=== PATIENT | male | born 1960 | race Hispanic/Latino ===

== ENCOUNTER 2016-07-12 16:49 | Inpatient (IN) | payer MEDICARE, MEDICAID ==
[~2016-07-12] VITALS: Ht 170.2 cm; Wt 88.9 kg
[2016-07-12] VITALS (13 sets, daily range): BP systolic 105–134; BP diastolic 62–87; PULSE 45–75; RESP 13–20; O2SAT 97–100
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
[~2016-07-12 16:49] MED LIST: 0.9% Sodium Chloride 250 ML ONE; ASPI81TA3 PO; ATOR40TA69 PO; CLOP75TA28 PO; Heparin 1,000 Unit/mL 10 mL Inj ONE; Heparin 1,000 Units/500 mL NS Premix IV ONE; Heparin 25,000 Unit/500 mL 0.45% NS Premix IV ONE; Heparin 5,000 Unit/mL Inj ONE; Heparin 5,000 Units/500 mL NS Premix IV ONE; LISI10TA PO; METO25TA6 PO; MeTOProlol 1 mg/mL 5 mL Inj ONE; NITR0.4T SL; NitroPRUSSIDE 25,000 mCg/mL 2 mL Inj IV ONE; Nitroglycerin 2% 1 Gm Ointment TOPICAL ONE; Nitroglycerin 50,000 mcg/250 mL D5W Premix IV ONE; Ondansetron 2 mg/mL 2 mL Inj ONE
[2016-07-12] MEDS ORDERED: 0.9% Sodium Chloride 1,000 ML ONE (16:57)
[2016-07-12] MEDS ORDERED: fentaNYL-PF 50 mCg/mL 2 mL Inj ONE ×3 (16:59→18:06)
[2016-07-12] MEDS ORDERED: Ondansetron 2 mg/mL 2 mL Inj ONE (17:17)
[2016-07-12] MEDS ORDERED: EPTIFIBATIDE IV ONE (17:21)
[2016-07-12] MEDS ORDERED: Atropine 1 mg/10 mL (Code) Syringe ONE (17:22)
[2016-07-12] MEDS ORDERED: Eptifibatide 20,000 mCg/10 mL Inj ONE (17:34)
[2016-07-12] MEDS ORDERED: Labetalol 5 mg/mL 20 mL Inj ONE (17:47)
[2016-07-12 17:49] LABS: BASOPHILS % (AUTO) 0.3 % (0-3); EOSINOPHILS % (AUTO) 0.6 % (0-5); MONOCYTES % (AUTO) 3.6 % (4-12); Mean Corpuscular Hemoglobin 30.7 pg (27.0-35.0); Mean Corpuscular Volume 86.2 fL (81-100); NEUTROPHILS % (AUTO) 69.8 % (40-74); Platelet Count 307 bil/L (150-400)
[2016-07-12] MEDS ORDERED: Nitroglycerin 50,000 mcg/250 mL D5W Premix IV ONE (17:52)
[2016-07-12 18:22] LABS: TROPONIN T < 0.010 ug/L (0.0-0.011)
[2016-07-12 18:25] LABS: Magnesium 1.6 mg/dL (1.6-2.6)
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
[2016-07-12] MEDS ORDERED: Ondansetron 2 mg/mL 2 mL Inj IVPUSH PRN (19:05)
[2016-07-12] MEDS ORDERED: Polyethylene Glycol (PEG) 17 Gm Powder PO PRN (19:05)
[2016-07-12] MEDS: Nitroglycerin 50 mg/250 mL D5W 50,000 MCG in IV Premix 1 EACH IV SCH (19:05)
[2016-07-12] MEDS ORDERED: Alum-Mag Hydrox-Simeth 30 mL Suspension PO PRN (19:05)
[2016-07-12] MEDS ORDERED: Senna-Docusate 8.6-50 mg Tablet PO PRN (19:05)
--- NOTE | 2016-07-12 20:14 | NUR ---
Pt transferred to CCU room 2010. Pt's VSS, Rt groin puncture sites CDI with no bleeding/hematoma noted. Pt's Rt groin venous sheath d/c'd and manual pressure held x 20 minutes. Pt's BP stable, NTG gtt titrated down to 30mcg/min at time of transfer. Pt transferred with IO in situ to Rt tibia. Pt received 1000 ml NS prior to arrival in [facility]. Report and pt handoff given to Epi COLVIN.
[2016-07-12] MEDS: Heparin 5,000 Unit/mL Inj SUBQ SCH (20:45)
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
--- NOTE | 2016-07-12 22:03 | DI95 ---
[address] [address] INTERVENTIONAL CARDIAC CATHETERIZATION PATIENT: EVE JEAN : 1960 MR#: [id number] ADMIT: 07/12/2016 JOB ID: [id number] PROCEDURE: 1. Selective right and left coronary angiography. 2. Left heart catheterization. 3. Percutaneous intervention on the right coronary artery. 4. Central line insertion. INDICATION: Acute inferior VA. PROCEDURAL DETAILS: The coders and the reader is referred to the procedure log for complete details. Briefly, right femoral approach, 6-Sami system for the arterial access. Because of patient's poor access site, an IV could not be inserted in the field. A central venous line was also placed in the right femoral vein. ANGIOGRAPHIC FINDINGS: 1. Right coronary is totally occluded proximally. 2. Left main: No significant disease. 3. Left anterior descending: Patent. It is a moderate caliber transapical vessel free of any significant disease. The previously placed stent in the LAD is patent. There is about a 30% plaque in the mid LAD. No critical stenosis is noted. 4. Circumflex: Nondominant moderate caliber vessel free of any significant disease. 5. Left heart catheterization revealed an LVEDP of 16. There was no gradient upon pullback. LV g was not done by intention. INTERVENTIONAL REPORT: A run-through wire and a standard catheter was used to perform this procedure. After crossing with a Run-through wire, balloon dilatation with a 2.0 and then with a 3.0 balloon was done in the proximal RCA. Following that, this was stented with a 4.0 x 15 mm bare metal stent delivered at 16 atmospheres. Final angiographic results were excellent. Next, there was some distal embolization and small posterolateral branch vessels. This was treated with wiring alone. Good flow was established and the patient's ST segments came down as did his chest discomfort. 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
[2016-07-13] VITALS (11 sets, daily range): BP systolic 126–158; BP diastolic 77–86; PULSE 52–70; RESP 16–21; O2SAT 95–98
[2016-07-13 03:29] LABS: BASOPHILS % (AUTO) 0.2 % (0-3); EOSINOPHILS % (AUTO) 0 % (0-5); MONOCYTES % (AUTO) 7.1 % (4-12); Mean Corpuscular Hemoglobin 30.7 pg (27.0-35.0); Mean Corpuscular Volume 87.1 fL (81-100); NEUTROPHILS % (AUTO) 78.4 % (40-74); Platelet Count 332 bil/L (150-400)
--- NOTE | 2016-07-13 05:27 | NUR ---
Admit note Admitted to CCU 2010 from [facility] 2014. Tele sinus millicent with hr 40-50. Right leg IO d/darvin intact. NTG gtt weaned to off with blood pressure 120s to 130s systolic. Complained of left arm pain 10/10 without nausea or radiation. EKG showed st inversions v2-3. Dr Perez notified. Morphine 2mg iv given x1 with relief. Later Pt admitted blood pressure cuff was causing most of his discomforts. Right groin site stable without hematoma or discomforts. Emesis x1 after narcotics without further incident. Post cath checks completed 5. Resting quietly through the remainder of the night.
[2016-07-13] MEDS: Heparin 5,000 Unit/mL Inj SUBQ SCH ×2 (09:27→20:44)
--- NOTE | 2016-07-13 10:00 | PCM.PNCARD ---
Subjective Date of service Jul 13, 2016 Chief Complaint Chest pain Constitutional: Denies: Fever ENT: Denies: Ear Pain Cardiovascular: Denies: Chest Pain, Irregular Heart Rate Respiratory: Denies: Cough, Cough with bloody sputum Gastrointestinal: Denies: Abdominal Pain, Blood in stool (red) Genitourinary: Denies: Dysuria, Hematuria, No burning or pain with urination Musculoskeletal: Reports: Back Pain Skin: Denies: Blisters, Dry or Flakiness Neurological: Denies: Confusion, Dizziness Endocrine: Reports: Blood Glucose Review Exam Vital Signs Vital Sign - Last Date Time Temp Pulse Resp B/P Pulse Ox O2 Delivery O2 Flow Rate FiO2 07/13/16 07:21 37.0 57 16 158/86 98 Room Air Intake and Output 07/12/16 07/12/16 07/13/16 Cumulative From/Thru 14:59 22:59 06:59 07/12/16 20:28 - 07/13/16 06:08 Intake Total 540 ml 540 ml Output Total 900 ml 900 ml Balance -360 ml -360 ml Intake Oral 540 ml 540 ml Output Urine Total 900 ml 900 ml General: Pleasant Cooperative Skin: Warm & dry to touch Head: Normocephalic Eye: EOMS intact Ears, Nose & Throat: Ears no gross abnormalities Nose no gross abnormalities Neck: No JVD Chest: Clear auscultation w/o rales/wheeze Cardiac: Normal non-displaced apical impulse Pulses: Pulses full/equal all extremities Abdomen: Soft, non-distended, non-tender Extremities: Warm w/o deformities,erythema noted Neurological: Alert & oriented Psychological: Affect & interaction appropriate Lab and Diagnostics Result Diagram: 07/13/16 0325 07/13/16 032 Additional Diagnostics: INTERVENTIONAL CARDIAC CATHETERIZATION PATIENT: EVE JEAN : 1960 MR#: [id number] ADMIT: 07/12/2016 JOB ID: [id number] PROCEDURE: 1. Selective right and left coronary angiography. 2. Left heart catheterization. 3. Percutaneous intervention on the right coronary artery. 4. Central line insertion. INDICATION: Acute inferior ME. PROCEDURAL DETAILS: The coders and the reader is referred to the procedure log for complete details. Briefly, right femoral approach, 6-Albanian system for the arterial access. Because of patient's poor access site, an IV could not be inserted in the field. A central venous line was also placed in the right femoral vein. ANGIOGRAPHIC FINDINGS: 1. Right coronary is totally occluded proximally. 2. Left main: No significant disease. 3. Left anterior descending: Patent. It is a moderate caliber transapical vessel free of any significant disease. The previously placed stent in the LAD is patent. There is about a 30% plaque in the mid LAD. No critical stenosis is noted. 4. Circumflex: Nondominant moderate caliber vessel free of any significant disease. 5. Left heart catheterization revealed an LVEDP of 16. There was no gradient upon pullback. LV g was not done by intention. INTERVENTIONAL REPORT: A run-through wire and a standard catheter was used to perform this procedure. After crossing with a Run-through wire, balloon dilatation with a 2.0 and then with a 3.0 balloon was done in the proximal RCA. Following that, this was stented with a 4.0 x 15 mm bare metal stent delivered at 16 atmospheres. Final angiographic results were excellent. Next, there was some distal embolization and small posterolateral branch vessels. This was treated with wiring alone. Good flow was established and the patient's ST segments came down as did his chest discomfort. 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 Assessment & Plan Problems: (1) STEMI (ST elevation myocardial infarction) Qualifiers: Involved coronary artery: unspecified coronary artery Qualified Code: I21.3 - ST elevation (STEMI) myocardial infarction of unspecified site Plan: Patient is asymptomatic. -Restart cardiac meds: -However I would like to switch his metoprolol to carvedilol for better BP control. -START Lisinopril 10 mg once a day -RESTART Atorvastatin 40 mg po qhs -RESTART Aspirin and clopidogrel Patient apparently has not been taking his meds since March 2016. Status: Resolved ICD Code: I21.3 (2) Hypertension Qualifiers: Hypertension type: essential hypertension Plan: START Lisinopril and CHANGE metoprolol to carvedilol for better BP control. Status: Chronic ICD Code: I10 (3) Hyperlipidemia Qualifiers: Hyperlipidemia type: Mixed hyperlipidemia Qualified Code: E78.2 - Mixed hyperlipidemia Plan: RESTART Atorvastatin 40 mg po qhs. Status: Chronic ICD Code: E78.5 Pain Evaluation: Adequate Pain Control Resuscitation Status: CPR: Attempt Resuscitation Discharge Plan: I suspect that he might go home tomorrow if not significant arrhythmias and if his echo is relatively stable. Patient will need f/u with his primary medical research assistant within 2-3 weeks. Time spent 30 minutes. Riky Devries MD Jul 13, 2016 09:59
--- NOTE | 2016-07-13 11:43 | PCM.PNMED ---
Subjective Date of Service Jul 13, 2016 Subjective Doing well today. He had a PCI with RCA stent yesterday. No chest pain this morning. He denies any dyspnea or palpitations. No nausea vomiting or diaphoresis. No difficulty urinating. His right groin feels somewhat tender but is not bad. Exam Vital Signs Vital Sign - Last Date Time Temp Pulse Resp B/P Pulse Ox O2 Delivery O2 Flow Rate FiO2 07/13/16 07:21 37.0 57 16 158/86 98 Room Air Intake and Output 07/12/16 07/12/16 07/13/16 Cumulative From/Thru 15:00 23:00 07:00 07/12/16 20:28 - 07/13/16 06:08 Intake Total 540 ml 540 ml Output Total 900 ml 900 ml Balance -360 ml -360 ml Intake Oral 540 ml 540 ml Output Urine Total 900 ml 900 ml Exam Alert oriented 3, fluent speech. Anicteric sclerae Neck supple. Lungs are clear. Heart is without murmur gallop or rub. Abdomen soft Extremities free edema with good pedal pulses bilaterally. IVs and Medications Medications Reviewed: Medications were reviewed in detail Lab and Diagnostics Result Diagram: 07/13/16 0325 07/13/16 032 Assessment & Plan 1. ACS, POA. Patient is status post RCA bare metal stenting. An US is still antiplatelet agents and beta blockade. Discussed with cardiology anticipate discharge on July 14. 2. Hypertensive urgency, POA. Atorvastatin drip was weaned and patient is now normotensive on beta-blockade. Patient is admitted inpatient status with anticipate length stable for 2 nights. 3. History of medication noncompliance. POA. He has not been taking meds since March in spite of the previous PCI and stenting. The importance of ongoing medication compliance was discussed with the patient at length this morning. Patient is full resuscitation. Anticipate discharge on . Pain Evaluation: Adequate Pain Control Resuscitation Status: CPR: Attempt Resuscitation Time spent 25 minutes Tyrone Roberts MD Jul 13, 2016 11:43
[2016-07-13] MEDS: Nitroglycerin 50 mg/250 mL D5W 50,000 MCG in IV Premix 1 EACH IV SCH (13:16)
--- NOTE | 2016-07-13 13:30 | DRSVH ---
[facility] [address] [place] [address] Echocardiogram Report Name: EVE JEAN Study Date: 07/13/2016 Height: 67 in Hospital Exam Location: [facility] Weight: 196 lb Gender: Male BSA: 2.0 m2 : 1960 Age: 55 yrs BP: 158/86 mmHg Reason For Study: STEMI Ordering Physician: Performed By: Sergei Valles Interpretation Summary The left ventricle is normal in size. Left ventricular systolic function is normal. The ejection fraction is estimated to be 60-65%. There is basal inferior wall hypokinesis. There is mid inferior wall hypokinesis. Assessment of diastolic parameters indicates a relaxation abnormality of the left ventricle, consistent with normal filling pressures. The right ventricle is borderline dilated. The right ventricular systolic function is normal. Pulmonary artery pressures cannot be estimated because of the lack of a measurable TR jet velocity. The left atrium is mildly dilated. Right atrial size is normal. There is no significant valvular heart disease. The ascending aorta is mildly enlarged. Procedure: A two-dimensional transthoracic echocardiogram with color flow and Doppler was performed. The study quality was technically adequate. Comparison is made with the echocardiogram of 05/22/15. The patient was in normal sinus rhythm during the exam. Left Ventricle: The left ventricle is normal in size. There is normal left ventricular wall thickness. Left ventricular systolic function is normal. The ejection fraction is estimated to be 60-65%. There is basal inferior wall hypokinesis. There is mid inferior wall hypokinesis. Assessment of diastolic parameters indicates a relaxation abnormality of the left ventricle, consistent with normal filling pressures. Right Ventricle: The right ventricle is borderline dilated. The right ventricular systolic function is normal. Atria: The left atrium is mildly dilated. Right atrial size is normal. The interatrial septum is intact with no evidence for an atrial septal defect. Mitral Valve: The mitral valve is normal in structure and function. There is mild mitral annular calcification. There is trace mitral regurgitation. Aortic Valve: The aortic valve is normal in structure and function. The aortic valve is trileaflet. The aortic valve opens well. No aortic regurgitation is present. Tricuspid Valve: The tricuspid valve is normal in structure and function. There is a trace or physiologic amount of tricuspid regurgitation. Pulmonary artery pressures cannot be estimated because of the lack of a measurable TR jet velocity. Pulmonic Valve: The pulmonic valve is normal in structure and function. There is no pulmonic valvular regurgitation. There is no significant valvular heart disease. Great Vessels: The aortic root is normal size. The ascending aorta is mildly enlarged. The pulmonary artery is normal size. The IVC is of normal diameter and collapses greater than 50% with a sniff. This suggests a low right atrial pressure of 3 mm Hg. Pericardium/ Pleura There is no pericardial effusion. There is no pleural effusion. MMode/2D Measurements & Calculations LVIDd: 5.1 cm LA dimension: 4.2 cm RA long axis Ao root diam LVIDs: 3.7 cm FS: 28.3 % LA A2 area: 22.4 cm RA area Aortic Jxn: 3.0 cm EPSS: 0.89 cm LA A4 area: 21.3 cm asc Aorta Diam IVSd: 0.86 cm LA length (vol) : 16.6 cm LVPWd: 1.0 cm RA vol Ao Arch Diam (Prox LA vol: 74.9 ml : 53.9 ml Trans): 2.8 cm LA vol index RA : 26.9 mm2 IVC diam: 2.0 cm LV garcia. diameter/BSA LV sys. diameter/BSA RVD1 (basal) RVD2 (mid): 3.9 cm (cm/m^2): 2.5 (cm/m^2): 1.8 Doppler Measurements & Calculations Ao V2 max MV E max enrique MV E/A: 0.46 PA V2 max: 76.1 cm/sec : 108.7 cm/sec : 38.9 cm/sec Med Peak E' Enrique PA mean P.2 mmHg Ao max PG MV A max enrique PA Accel Time: 0.09 sec : 4.7 mmHg : 84.6 cm/sec E/E' med: 11.4 Ao mean PG Pulm A Revs Dur : 2.6 mmHg MV A dur: 0.13 sec MV dec time Ao V2 mean PA V2 mean Pulm A Revs Dur - MV A : 0.14 sec : 75.6 cm/sec : 51.8 cm/sec Dur: -0.02 msec Ao V2 VTI PA pr(Accel) : 17.6 cm : 39.1 mmHg Reading Physician:EFE
--- NOTE | 2016-07-13 14:46 | NUR ---
Arm pain Patient still complaining of arm pain this morning but resolved before lunch. Patient reported feeling possibly irritation from IV refused any need for medication. Patient reported at lunch time pain completely gone. Telemetry stable no arrhythmias . Vital signs stable. Patient transferred to [facility] status. Appetite improving . Patient not having any further nausea. Plan to increase activity.
[2016-07-14 02:51] VITALS: BP 126/86; PULSE 61; RESP 18; O2SAT 98
[2016-07-14 04:33] VITALS: PULSE 58
--- NOTE | 2016-07-14 07:11 | NUR ---
Pain Pt denied pain all shift. Did not request PRN pain medication.
[2016-07-14] MEDS: Heparin 5,000 Unit/mL Inj SUBQ SCH (07:42)
[2016-07-14 08:00] VITALS: PULSE 59
[2016-07-14 08:30] VITALS: BP 123/79; PULSE 68; RESP 18; O2SAT 97
--- NOTE | 2016-07-14 09:15 | NUR ---
Social Work: Initial Assessment D: Per EMR review, pt is a 55 year old male admitted for chest pain. Pt is Medicare with no supplement, LTC insurance or VA benefits. Pt does not have a PCP and declined to have [employer] make him an appointment at the residency clinic. NOK is Parminder and Naeem Romo, Brothers. Advanced directives not completed- information provided to pt by [employer]. Readmit score is low, 2/8. [employer] met with pt at bedside to complete initial assessment. Sw role explained. Pt lives in a trailer on his brother's property, in [facility] [place] [place]. Pt states he is I at baseline and uses no DME. Pt does not drive but uses public transportation and/or gets rides from his brothers. Pt states he has never had home health or skilled rehab placements. Pt states his brothers will drive him home at time of discharge and that he anticipates no needs. Pt has been ambulating I during admission. A: Pt who is I at baseline. P: Anticipate pt to discharge home via POV once medically stable; no sw needs identified at this time. JOSE Basilio Addendum: 07/14/16 at 0919 by NIMA NEUMANN Amended: Links added.
--- NOTE | 2016-07-14 11:04 | PCM.DC.MED ---
Discharge Summary Date of Service Jul 14, 2016 Dates of Hospitalization Date of Hospital Admission Jul 12, 2016 at 19:49 Date of Discharge: Jul 14, 2016 Providers: Admitting Physician: Tyrone Roberts MD Primary Care Physician: Nopcp Attending Physician: Tyrone Roberts MD Diagnosis at Time of Discharge Diagnosis at Time of Discharge STEMI, medication noncompliance Consultations Dr.s Velazquez, Brisien[place]- cardiology Procedures ECG 12 Lead Sinus bradycardia with a rate of 48, prolonged [place] interval abnormal T waves flipped anterolateral leads, QTC 437 07/12/16/concurrently reviewed Invasive Procedures ANGIOGRAPHIC FINDINGS: 1. Right coronary is totally occluded proximally. 2. Left main: No significant disease. 3. Left anterior descending: Patent. It is a moderate caliber transapical vessel free of any significant disease. The previously placed stent in the LAD is patent. There is about a 30% plaque in the mid LAD. No critical stenosis is noted. 4. Circumflex: Nondominant moderate caliber vessel free of any significant disease. 5. Left heart catheterization revealed an LVEDP of 16. There was no gradient upon pullback. LV g was not done by intention. INTERVENTIONAL REPORT: A run-through wire and a standard catheter was used to perform this procedure. After crossing with a Run-through wire, balloon dilatation with a 2.0 and then with a 3.0 balloon was done in the proximal RCA. Following that, this was stented with a 4.0 x 15 mm bare metal stent delivered at 16 atmospheres. Final angiographic results were excellent. Next, there was some distal embolization and small posterolateral branch vessels. This was treated with wiring alone. Good flow was established and the patient's ST segments came down as did his chest discomfort. 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 Alirio Perez MD 07/12/16 181 Brief History This is a 55-year-old examination well-developed, chest pain or left arm pain today after coming out of the grocery store. The abdomen pain did not really relieve when he started to rest. He went home and had progressive pain and some nausea. He did not vomit. He did get very hot and became diaphoretic. He has a history of similar episode about a year and a month ago which led up to her PCI and stent. 911 was called he was brought to the ER. There is hypertensive. ECG was called inferior STEMI. The patient was taken to the coronary catheterization lab and underwent an angiogram revealing a critical RCA lesion. He underwent PCI with bare metal stenting of the RCA. Postprocedure he continued to be hypertensive was placed on a nitroglycerin drip. The patient is doing much better now in the postprocedure area and denies any chest pain, diaphoresis, or nausea. In talking with the patient, there may have been medication noncompliance for several weeks. It is unclear even after asking him multiple times how long he has been off his medications. It does become clear that he had some difficulty for some reason obtaining his medications recently. Hospital Course 1. ACS, POA. Patient is status post RCA bare metal stenting. An US is still antiplatelet agents and beta blockade. Discussed with cardiology today 07/14 and they have cleared patient for discharge. 2. Hypertensive urgency, POA. Atorvastatin drip was weaned and patient is now normotensive on beta-blockade. Patient is admitted inpatient status with anticipate length stable for 2 nights. 3. History of medication noncompliance. POA. He has not been taking meds since March in spite of the previous PCI and stenting. The importance of ongoing medication compliance was discussed with the patient at length this morning. Patient is full resuscitation. . Exam Vital Signs (Last) Date Time Temp Pulse Resp B/P Pulse Ox O2 Delivery O2 Flow Rate FiO2 07/14/16 08:30 37.0 68 18 123/79 97 Room Air Exam Gen.- A+ O 3 no apparent distress. Heavy male sleeping Eyes- open conjunctiva clear, pupils equal nonicteric Mouth- oral mucosa moist, no exudate ENT- ears normal, nose normal Neck- supple/trach midline CVS- RRR no murmur or gallop, trace edema to extremities Lungs CTA GI- NABS/NT soft Musc- moving 4 no obvious deformity Neuro- cranial nerves II through XII intact to gross examination, nonfocal Skin- warm and dry, no rashes/lesions/wounds noted Psych- pleasant and appropriate, Test 07/12/16 17:36 07/13/16 03:25 07/13/16 03:40 07/14/16 02:50 Hemoglobin A1c 5.5% (4.8-5.6) Magnesium Level 1.6mg/dL (1.6-2.6) Troponin T < 0.010ug/L (0.0-0.011) White Blood Count 11.7th/mm3 (3.8-10.1) Red Blood Count 4.66mil/mm3 (4.40-5.80) Hemoglobin 14.3g/dL (13.8-17.2) Hematocrit 40.6% (41.0-50.0) Mean Corpuscular Volume 87.1fL (81-100) Mean Corpuscular Hemoglobin 30.7pg (27.0-35.0) Mean Corpuscular Hemoglobin Concent 35.2% (32.0-37.0) Red Cell Distribution Width 12.8% (12.3-15.4) Platelet Count 332bil/L (150-400) Neutrophils (%) (Auto) 78.4% (40-74) Lymphocytes (%) (Auto) 14.1% (14-46) Monocytes (%) (Auto) 7.1% (4-12) Eosinophils (%) (Auto) 0% (0-5) Basophils (%) (Auto) 0.2% (0-3) Total Bilirubin 0.6mg/dL (0.0-1.2) Aspartate Amino Transf (AST/SGOT) 71U/L (0-50) Alanine Aminotransferase (ALT/SGPT) 24U/L (0-44) Alkaline Phosphatase 72U/L (25-150) Total Protein 7.2g/dL (6.4-8.4) Albumin 3.8g/dL (3.4-5.0) Hold Pan Top Tube Received (Received) Sodium Level 139mEq/L (134-144) Potassium Level 3.5mEq/L (3.5-5.2) Chloride Level 103mEq/L (97-108) Carbon Dioxide Level 24mmol/L (18-29) Blood Urea Nitrogen 14mg/dL (6-24) Creatinine 0.76mg/dL (0.76-1.27) Estimat Glomerular Filtration Rate 113mL/min (>59) Glucose Level 106mg/dL (60-99) Calcium Level 8.3mg/dL (8.5-10.1) Discharge Medications Discharge Medications Aspirin Chew (Aspirin Chew) 81 Mg Tablet 81 MG PO DAILY Prescribed by: JESS KUNZ Atorvastatin Calcium (Atorvastatin Calcium) 40 Mg Tablet 40 MG PO HS Prescribed by: JESS KUNZ Clopidogrel (Clopidogrel) 75 Mg Tablet 75 MG PO DAILY Prescribed by: JESS KUNZ Lisinopril (Lisinopril) 10 Mg Tablet 10 MG PO DAILY Prescribed by: JESS KUNZ Metoprolol Tartrate (Metoprolol Tartrate) 25 Mg Tablet 25 MG PO BID Prescribed by: JESS KUNZ As needed Nitroglycerin SL (Nitrostat) 0.4 Mg Tablet 0.4 MG SL Q5MIN PRN PRN For Chest Pain Prescribed by: CR CHAU MD Disch Med Contraindications Statins Meds: Conduction heart disorder Followup Plan Disposition: Home Follow-up plan Follow-up with PCP should get one, and cardiology Dr. Peterson in 1 month Patient Instructions Take your medications. Follow-up Provider: Osman Peterson MD Follow-up with PCP in: 4 weeks Time spent 31 minutes Damon Mcneal MD Jul 14, 2016 11:04
--- NOTE | 2016-07-14 11:17 | PCM.DIMED ---
Discharge Instructions Date of Service Jul 14, 2016 Dates of Hospitalization Jul 12, 2016 at 19:49 Discharge Diagnosis Discharge Diagnosis STEMI, medication noncompliance Medication Instructions Go directly to the pharmacy and picker / packer her medications. You may as a result of complications of the interventions we have performed if you do not take these medications. Diet Heart Healthy Activity No restrictions Call your provider Chest pain Patient Instructions Take your medications. Follow-up plan Follow-up with PCP should get one, and cardiology Dr. Peterson in 1 month Follow-up Provider: Osman Peterson MD Follow-up with PCP in: 4 weeks Additional Information Patient did not take his medication since March, if you do not take them. We will have further events. If he cannot safely take aspirin. Her general your current stents may clog. Damon Mcneal MD Jul 14, 2016 11:17
[2016-07-14] MEDS ORDERED: ATOR40TA69 PO (11:21)
[2016-07-14] MEDS ORDERED: CARV6.252 PO (11:21)
[2016-07-14] MEDS ORDERED: NITR0.4T SL (11:21)
[2016-07-14] MEDS ORDERED: LISI10TA PO (11:21)
[2016-07-14] MEDS ORDERED: CLOP75TA28 PO (11:21)
--- NOTE | 2016-07-14 13:49 | NUR ---
P: Chest Pain I: Pt denies any chest pain or SOB. NSR. RA with sats stable. Afebrile. Taking diet and fluids well. Voiding qs. Up in room independently. Discharge instructions given. Saline lock x2 dc'd with catheter intact. Rt groin site stable. E: Stable S: Pt will be here until around 1700 when his brother can pick him up. Alert and Oriented. Uses call light appropriately
--- NOTE | 2016-07-14 17:27 | NUR ---
Actual discharge time 1725 and left with his brother.
== END 2016-07-14 17:25 | disposition home or self-care (01) | DRG 249 ==
LOC: SED 16:49 → EDUNIT# 16:49 → SOUO 17:21 → CCU 19:49 → PCC 07-13 11:45
PROVIDERS: ADMIT Hospitalist; ATTEND Hospitalist
PROC: 02703DZ Dilation of Coronary Artery, One Artery with Intraluminal Device, Percutaneous Approach (ICD-10-PCS; principal; 2016-07-12)
PROC: 4A023N7 Measurement of Cardiac Sampling and Pressure, Left Heart, Percutaneous Approach (ICD-10-PCS; 2016-07-12)
PROC: B2111ZZ Fluoroscopy of Multiple Coronary Arteries using Low Osmolar Contrast (ICD-10-PCS; 2016-07-12)
DX: I21.19 ST elevation (STEMI) myocardial infarction involving other coronary artery of inferior wall (principal); I16.0 Hypertensive urgency; I25.10 Atherosclerotic heart disease of native coronary artery without angina pectoris; E78.00 Pure hypercholesterolemia, unspecified; Z87.891 Personal history of nicotine dependence; Z91.14 Patient's other noncompliance with medication regimen; Z79.82 Long term (current) use of aspirin